=== PATIENT | female | born 1955 | race Hispanic/Latino ===

== ENCOUNTER 2020-12-27 05:36 | Day surgery (SDC) | payer MEDICARE ==
[2020-12-26 15:57] LABS: BASOPHILS % (AUTO) 0.5 % (0.0-5.0); EOSINOPHILS % (AUTO) 2.5 % (0.0-8.0); HEMATOCRIT 40.5 % (36-48); LYMPHOCYTES % (AUTO) 22.8 % (21.0-51.0); MEAN CORPUSCULAR HEMOGLOBIN 28.4 pg (27.0-33.0); MEAN CORPUSCULAR HGB CONC 32.1 g/dL (32.0-36.0); MEAN CORPUSCULAR VOLUME 88.4 fL (79-99); MONOCYTES % (AUTO) 7.3 % (3.0-13.0); NEUTROPHILS % (AUTO) 66.6 % (40.0-77.0); PLATELET COUNT (AUTO) 235 K/uL (130-400); RED BLOOD CELL COUNT(AUTO) 4.58 MIL/uL (4.00-5.50); RED CELL DISTRIBUTION WIDTH 12.8 % (11.0-15.5); WHITE BLOOD COUNT (AUTO) 7.9 K/uL (4.8-10.8)
[2020-12-26 16:13] VITALS: BP 148/74
[~2020-12-27] VITALS: Ht 157.5 cm; Wt 90.6 kg
[2020-12-27] VITALS (18 sets, daily range): BP systolic 97–137; BP diastolic 59–84
[~2020-12-27 05:36] MED LIST: ATOR10 PO; CEFAZOLIN SODIUM 1 GM VIAL ONE; METF-444 PO; SODIUM CHLORIDE 0.9% 1000ML 1,000 ML IV ONE
[2020-12-27] MEDS ORDERED: DEXAMETHASONE SOD PHOSPHATE 10MG/ML 1ML VIAL ONE (06:43)
[2020-12-27] MEDS ORDERED: LIDOCAINE PF 2% 5ML ABBOJECT ONE (06:43)
[2020-12-27] MEDS ORDERED: ONDANSETRON HCL 4 MG/2 ML VIAL ONE (06:43)
[2020-12-27] MEDS ORDERED: PROPOFOL 10 MG/ML 20ML VIAL IV ONE (06:43)
[2020-12-27] MEDS ORDERED: MIDAZOLAM HCL 1 MG/ML 2ML VIAL ONE (06:44)
[2020-12-27] MEDS ORDERED: MEPERIDINE-PF 25 MG/ML SYG ONE (06:44)
[2020-12-27] MEDS ORDERED: FENTANYL CITRATE PF 50 MCG/1 ML 2ML VIAL ONE (06:44)
[2020-12-27] MEDS ORDERED: ACETIC ACID 0.25% 1,000 ML IRRIG.SOLN ONE (07:05)
[2020-12-27] MEDS ORDERED: STRONG IODINE SOLN 14ML BOTTLE ONE (07:06)
== END 2020-12-27 09:46 | disposition home or self-care (01) ==
LOC: DAH 05:36
PROVIDERS: ATTEND Obstetrics & Gynecology
DX: N95.0 Postmenopausal bleeding (principal); N94.0 Mittelschmerz; N84.0 Polyp of corpus uteri; E11.9 Type 2 diabetes mellitus without complications; E78.5 Hyperlipidemia, unspecified; Z79.899 Other long term (current) drug therapy; Z20.828 Contact with and (suspected) exposure to other viral communicable diseases
CPT/HCPCS: 36415; 58563; 82948 ×2; 85025; 86850; 86900; 86901; A4215; A4221; A4222; A4223; A4351; A4355; A4510; A4600; A4663; A6260; C9803; J1100; J2001; J2175; J2250; J2405; J2704; J3010; J7030 ×2; J7120; U0003; J0690